=== PATIENT | female | born 1960 | race Caucasian/White ===

== ENCOUNTER → 2020-11-09 | Outpatient (CLI) | payer OTHER | LOC: US 09:04 | PROC: 0H9U3ZX Drainage of Left Breast, Percutaneous Approach, Diagnostic (ICD-10-PCS; principal; 2020-11-09) | PROC: 07963ZX Drainage of Left Axillary Lymphatic, Percutaneous Approach, Diagnostic (ICD-10-PCS; 2020-11-09) | DX: C50.912 Malignant neoplasm of unspecified site of left female breast (principal); R59.0 Localized enlarged lymph nodes | CPT/HCPCS: 77065; 87635 ==

== ENCOUNTER 2021-07-04 23:22 | Inpatient (IN) | payer OTHER ==
[~2021-07-04] VITALS: Ht 167.6 cm; Wt 97.5 kg
[2021-07-05 00:53] LABS: HEMOGLOBIN 16.2 gm/dl (12.3-15.3); RED BLOOD COUNT 4.93 M/UL (4.00-5.10); WHITE BLOOD COUNT 9.4 K/UL (4.5-11.0)
[2021-07-05] MEDS ORDERED: PHENERGAN 25 MG25 M1 PO (09:28)
[2021-07-05] MEDS ORDERED: ANASTROZOLE1 MG PO (09:29)
[2021-07-05] MEDS ORDERED: AMLODIPINE BESY10 MG PO (09:29)
[2021-07-05] MEDS ORDERED: DULOXETINE HCL30 MG PO (09:30)
[2021-07-05] MEDS ORDERED: FLONASE 0.05% N16 GM (09:31)
[2021-07-05] MEDS ORDERED: LANSOPRAZOLE15 MG PO (09:31)
[2021-07-05] MEDS ORDERED: ADVAIR 500-501 EACH INH (09:32)
[2021-07-05] MEDS ORDERED: MONTELUKAST SOD10 MG PO (09:32)
[2021-07-05] MEDS ORDERED: LOSARTAN-HCTZ1 EAC1 PO (09:32)
[2021-07-05] MEDS ORDERED: METOPROLOL TAR100 MG PO (09:32)
[2021-07-05] MEDS ORDERED: PRENATAL VITAM1 EAC5 PO (09:33)
[2021-07-05] MEDS ORDERED: CALCIUM500 M1 PO (09:33)
[2021-07-05] MEDS ORDERED: VITAMIN B COMP1 EAC1 PO (09:34)
[2021-07-05] MEDS ORDERED: ZOFRAN4 MG PO (09:37)
[2021-07-05] MEDS ORDERED: TIZANIDINE HCL4 MG PO (09:42)
[2021-07-06 05:09] LABS: HEMOGLOBIN 13.7 gm/dl (12.3-15.3); RED BLOOD COUNT 4.2 M/UL (4.00-5.10); WHITE BLOOD COUNT 5.4 K/UL (4.5-11.0)
[2021-07-06 06:19] LABS: BUN/CREATININE RATIO 15 (0-10)
[2021-07-06] MEDS ORDERED: CELECOXIB200 MG PO (09:30)
[2021-07-07 04:44] LABS: BUN/CREATININE RATIO 12 (0-10)
[2021-07-07 05:40] LABS: WHITE BLOOD COUNT 5.4 K/UL (4.5-11.0)
[2021-07-07 05:49] LABS: HEMOGLOBIN 13.4 gm/dl (12.3-15.3); RED BLOOD COUNT 3.44 M/UL (4.00-5.10)
[2021-07-08 02:57] LABS: HEMOGLOBIN 13.6 gm/dl (12.3-15.3); WHITE BLOOD COUNT 4.3 K/UL (4.5-11.0)
[2021-07-08 03:22] LABS: RED BLOOD COUNT 4.19 M/UL (4.00-5.10)
[2021-07-08] MEDS ORDERED: ASPIRIN EC81 MG PO (18:01)
[2021-07-08] MEDS ORDERED: LIPITOR20 MG PO (18:02)
== END 2021-07-08 20:30 | disposition home or self-care (01) | DRG 683 ==
LOC: ER1 23:22 → CDU 07-05 02:41 → PROG CARE 07-07 12:04 → MED SURG 4 07-07 17:38
PROVIDERS: Internal Medicine; Internal Medicine Nephrology; Physician Assistant; ADMIT Internal Medicine
DX: N17.9 Acute kidney failure, unspecified (principal); E87.1 Hypo-osmolality and hyponatremia; E86.0 Dehydration; C50.919 Malignant neoplasm of unspecified site of unspecified female breast; Z20.822 Contact with and (suspected) exposure to COVID-19; F41.8 Other specified anxiety disorders; E83.39 Other disorders of phosphorus metabolism; I27.20 Pulmonary hypertension, unspecified; M19.90 Unspecified osteoarthritis, unspecified site; E66.9 Obesity, unspecified; I07.1 Rheumatic tricuspid insufficiency; F32.9 Major depressive disorder, single episode, unspecified; I10 Essential (primary) hypertension; E83.42 Hypomagnesemia; I95.9 Hypotension, unspecified; E87.6 Hypokalemia; K70.9 Alcoholic liver disease, unspecified; D50.9 Iron deficiency anemia, unspecified; F10.10 Alcohol abuse, uncomplicated; Z79.01 Long term (current) use of anticoagulants; Z79.82 Long term (current) use of aspirin; Z91.81 History of falling; Z88.8 Allergy status to other drugs, medicaments and biological substances; Z88.1 Allergy status to other antibiotic agents; Z91.14 Patient's other noncompliance with medication regimen; Z82.49 Family history of ischemic heart disease and other diseases of the circulatory system; Z68.34 Body mass index [BMI] 34.0-34.9, adult; Z90.710 Acquired absence of both cervix and uterus
CPT/HCPCS: ECHO; 36415; 70450; 71045; 72125; 80048; 80053; 81001; 82436; 82533; 82550; 82553; 82570; 83540; 83550; 83735; 83874; 83880; 83935; 84100; 84133; 84300; 84439; 84443; 84484; 84550; 85025; 93005; 93306; 97161; 97166; 99285; C9113; J2597; J3411; J3475; J3480; J7030; J7050; J7060; U0002

== ENCOUNTER → 2021-07-12 | Outpatient (CLI) | payer OTHER ==
[~2021-07-12] MED LIST: ADVAIR 500-501 EACH INH; AMLODIPINE BESY10 MG PO; ANASTROZOLE1 MG PO; ASPIRIN EC81 MG PO; CALCIUM500 M1 PO; CELECOXIB200 MG PO; DULOXETINE HCL30 MG PO; FLONASE 0.05% N16 GM; LANSOPRAZOLE15 MG PO; LIPITOR20 MG PO; LOSARTAN-HCTZ1 EAC1 PO; METOPROLOL TAR100 MG PO; MONTELUKAST SOD10 MG PO; PHENERGAN 25 MG25 M1 PO; PRENATAL VITAM1 EAC5 PO; TIZANIDINE HCL4 MG PO; VITAMIN B COMP1 EAC1 PO; ZOFRAN4 MG PO
== END ==
LOC: LAB 13:59
PROVIDERS: Internal Medicine Nephrology
DX: N17.9 Acute kidney failure, unspecified (principal)
CPT/HCPCS: 36415; 80048

== ENCOUNTER → 2021-07-28 | Outpatient (CLI) | payer OTHER | LOC: MAMO 11:00 | DX: C50.512 Malignant neoplasm of lower-outer quadrant of left female breast (principal); Z17.0 Estrogen receptor positive status [ER+] | CPT/HCPCS: 77066; G0279 ==

== ENCOUNTER 2022-02-24 11:29 | Inpatient (IN) | payer OTHER ==
[~2022-02-24] VITALS: Ht 167.6 cm; Wt 88.5 kg
[~2022-02-24 11:29] MED LIST changes: -DULOXETINE HCL30 MG PO; +DULOXETINE HCL60 MG PO; +ZOFRAN ODT 4 MG4 MG SL; -ZOFRAN4 MG PO
[2022-02-24 12:49] LABS: HEMOGLOBIN 14.1 gm/dl (12.3-15.3); RED BLOOD COUNT 4.06 M/UL (4.00-5.10); WHITE BLOOD COUNT 4.2 K/UL (4.5-11.0)
[2022-02-24 13:23] LABS: BUN/CREATININE RATIO 11 (0-10)
[2022-02-24] MEDS ORDERED: LOSARTAN POTAS100 MG PO (18:04)
[2022-02-24] MEDS ORDERED: ZYRTEC10 MG PO (18:07)
[2022-02-24] MEDS ORDERED: BANOPHEN25 M1 PO (18:07)
[2022-02-24] MEDS ORDERED: ALLEGRA ALLERGY60 MG PO (18:08)
[2022-02-25 06:24] LABS: HEMOGLOBIN 12.7 gm/dl (12.3-15.3); RED BLOOD COUNT 3.69 M/UL (4.00-5.10)
[2022-02-25 06:30] LABS: WHITE BLOOD COUNT 6.9 K/UL (4.5-11.0)
[2022-02-26 06:00] LABS: BUN/CREATININE RATIO 13 (0-10)
--- NOTE | 2022-02-26 09:36 | NUR ---
DR DOUGLAS NOTIFIED OF [facility] OF 8, PATIENT REFUSED LORAZEPAM, NO NEW ORDERS GIVEN
[2022-02-26 10:00] LABS: HEMOGLOBIN 12.7 gm/dl (12.3-15.3); RED BLOOD COUNT 3.68 M/UL (4.00-5.10)
[2022-02-26 10:01] LABS: WHITE BLOOD COUNT 3.5 K/UL (4.5-11.0)
[2022-02-27 06:05] LABS: RED BLOOD COUNT 3.51 M/UL (4.00-5.10); WHITE BLOOD COUNT 3.1 K/UL (4.5-11.0)
[2022-02-27 06:32] LABS: BUN/CREATININE RATIO 11 (0-10)
[2022-02-28 06:38] LABS: HEMOGLOBIN 11.5 gm/dl (12.3-15.3); RED BLOOD COUNT 3.39 M/UL (4.00-5.10); WHITE BLOOD COUNT 3.8 K/UL (4.5-11.0)
--- NOTE | 2022-02-28 10:43 | NUR ---
patient back on floor from tilt tale test no acute distress noted.
[2022-02-28 14:34] LABS: BUN/CREATININE RATIO 12 (0-10)
[2022-03-01 06:14] LABS: HEMOGLOBIN 10.9 gm/dl (12.3-15.3); RED BLOOD COUNT 3.22 M/UL (4.00-5.10); WHITE BLOOD COUNT 4.4 K/UL (4.5-11.0)
[2022-03-01 06:39] LABS: BUN/CREATININE RATIO 10 (0-10)
[2022-03-01] MEDS ORDERED: ASPIRIN EC81 MG PO (14:42)
[2022-03-01] MEDS ORDERED: PHOS-NAK PACKET1 EA PO (14:42)
[2022-03-01] MEDS ORDERED: MAGNESIUM OXID400 M1 PO (14:42)
[2022-03-01] MEDS ORDERED: TAB-A-VITE TA400 MC1 PO (14:42)
[2022-03-01] MEDS ORDERED: THIAMINE HCL100 MG PO (14:42)
[2022-03-01] MEDS ORDERED: OMNICEF 300 MG300 MG PO (15:25)
[2022-03-01] MEDS ORDERED: DEX4 GLUCOSE4 GM PO (15:36)
== END 2022-03-01 16:53 | disposition home or self-care (01) | DRG 896 ==
LOC: ER1 11:29 → CDU 14:09 → M/S 16:53
PROVIDERS: Physician Assistant; ADMIT Internal Medicine
PROC: B24BZZZ Ultrasonography of Heart with Aorta (ICD-10-PCS; principal; 2022-02-25)
DX: F10.10 Alcohol abuse, uncomplicated (principal); G92.9 Unspecified toxic encephalopathy; N17.9 Acute kidney failure, unspecified; Z20.822 Contact with and (suspected) exposure to COVID-19; N39.0 Urinary tract infection, site not specified; E87.1 Hypo-osmolality and hyponatremia; E87.6 Hypokalemia; E83.42 Hypomagnesemia; E83.39 Other disorders of phosphorus metabolism; E86.0 Dehydration; I95.9 Hypotension, unspecified; J45.909 Unspecified asthma, uncomplicated; D75.89 Other specified diseases of blood and blood-forming organs; E78.5 Hyperlipidemia, unspecified; K21.9 Gastro-esophageal reflux disease without esophagitis; F32.A Depression, unspecified; R26.81 Unsteadiness on feet; R47.81 Slurred speech; E16.2 Hypoglycemia, unspecified; F41.9 Anxiety disorder, unspecified; E86.1 Hypovolemia; R00.1 Bradycardia, unspecified; Z79.01 Long term (current) use of anticoagulants; Z79.82 Long term (current) use of aspirin; Z73.3 Stress, not elsewhere classified; Z90.12 Acquired absence of left breast and nipple; Z88.1 Allergy status to other antibiotic agents; Z90.710 Acquired absence of both cervix and uterus; Z82.49 Family history of ischemic heart disease and other diseases of the circulatory system; Z80.0 Family history of malignant neoplasm of digestive organs
CPT/HCPCS: ECHO; 36415; 70450; 71045; 80053; 80307; 81001; 82140; 82550; 82553; 82607; 82962; 83605; 83735; 84100; 84132; 84439; 84443; 84484; 85025; 85027; 85652; 87040; 87086; 93005; 93306; 94640; 94664; 94760; 97110; 97116-GP-CQ; 97161; 97165; 99285; G0378; G0480; J0696; J1650; J3475; J7030; U0002